=== PATIENT | male | born 1985 | race African-American/Black ===

== ENCOUNTER 2018-12-03 22:45 | Emergency (ER) | payer MEDICARE ==
[~2018-12-03] VITALS: Ht 182.9 cm; Wt 81.0 kg
[2018-12-03] MEDS ORDERED: KETOROLAC 30 MG/1 ML ONE (22:59)
[2018-12-03] MEDS ORDERED: KETOROLAC 30 MG/1 ML IM ONE (23:00)
[2018-12-03] MEDS ORDERED: ACETAMINOPHEN 500 MG TABLET PO ONE (23:00)
--- NOTE | 2018-12-03 23:01 | NUR ---
PT BIB [facility]ON[facility] WITH GENERALIZED PAIN, FLU LIKE SYMPTOMS, AND CHEST PAIN. PT STATES RECENTLY SEEN AT [facility] FOR R/O COSTROCHONDRITIS. UPON ARRIVAL TO [facility] ED, PT [facility] GOWN IN [facility]. VS MACHINES ATTACHED. VSS AT THIS TIME. EKG DONE AT BS. AWAITING ERP AT THIS TIME. PT EDUCATED ON ER PROCESS AND POC AND VERBALIZES UNDERSTANDING. CALL LIGHT IS WITHIN REACH.
[2018-12-03 23:12] LABS: BASOPHILS # (AUTO) 0.04 x10^3/uL (0-0.1); BASOPHILS % (AUTO) 1 % (0-1); EOSINOPHILS # (AUTO) 0.24 x10^3/uL (0-0.4); EOSINOPHILS % (AUTO) 3 % (1-7); HCT (SEDRATE) 40.7 % (39.2-51.8); LYMPHOCYTES % (AUTO) 30 % (22-44); MD NO; MEAN CORPUSCULAR HEMOGLOBIN 28.7 pg (27.5-34.5); MEAN CORPUSCULAR HGB CONC 32.9 g/dL (33.2-36.2); MEAN CORPUSCULAR VOLUME 87.3 fL (81-97); MEAN PLATELET VOLUME 8.6 fL (7.4-10.4); MONOCYTES % (AUTO) 7 % (2-9); NEUTROPHILS # (AUTO) 5.07 x10^3/uL (1.8-6.8); NEUTROPHILS % (AUTO) 60 % (42-75); PLATELET COUNT 262 x10^3/uL (130-400); RED BLOOD COUNT 4.66 x10^6/uL (4.38-5.82); RED CELL DISTRIBUTION WIDTH 14.4 % (9.4-14.8)
--- NOTE | 2018-12-03 23:15 | NUR ---
PT MEDICATED PER MAR.
[2018-12-03] MEDS ORDERED: ACETAMINOPHEN 500 MG TABLET ONE (23:18)
[2018-12-03 23:25] LABS: ALBUMIN 3.4 g/dL (3.4-5.0); ANION GAP 5 mmol/L (5-15); C-REACTIVE PROTEIN, QUANT 0.25 mg/dL (0.02-0.49); CALCIUM 9.1 mg/dL (8.5-10.1); CHLORIDE 108 mmol/L (98-107); CREATININE 0.98 mg/dL (0.7-1.3)
[2018-12-03 23:29] LABS: TROPONIN I < 0.015 ng/mL (0.000-0.045)
--- NOTE | 2018-12-03 23:54 | NUR ---
PT ASLEEP AT THIS TIME IN [facility] WITH CALL LIGHT WITHIN REACH;
--- NOTE | 2018-12-04 00:26 | NUR ---
PT D/C WITH D/C SUMMARY. ALL QUESTIONS ANSWERED. PT VSS AND UPDATED PRIOR TO D/C . PT VERBALIZES UNDERSTANDING OF F/U CARE. PT AMBULATES TO REGISTRATION DESK WITH STEADY GAIT FOR D/C HOME. PT DENIES ANY OTHER NEEDS PERTAINING TO THIS VISIT.
[2018-12-04 00:27] VITALS: BP 112/68
== END 2018-12-04 00:56 | disposition home or self-care (01) ==
LOC: ED 23:59
DX: R07.89 Other chest pain (principal)
CPT/HCPCS: 36415; 71045; 80048; 82040; 84484; 85025; 85651; 86140; 93005; 96372; 99284; J1885